=== PATIENT | male | born 1955 | race African-American/Black ===

== ENCOUNTER 2020-03-16 17:16 | Inpatient (IN) | payer OTHER ==
[~2020-03-16] VITALS: Ht 182.9 cm; Wt 111.3 kg
[~2020-03-16 17:16] MED LIST: ACTOS; ACTOS15 MG PO; ADVAIR HFA 1112 UNIT IH; ADVAIR IH; ALBUTEROL2.5 MG/0.1 IH; ASPIRIN325 PO; BENTYL 10 MG CA10 MG PO; CYMBALTA60 MG PO; DIOVAN 80 MG TA80 M1 PO; DIOVAN40 MG PO; EC-NAPROSYN500 MG PO; FLEET ENEMA118 ML RC; FOLIC ACID1 MG PO; LIPITOR80 MG PO; LOPRESSOR; LOPRESSOR100 MG PO; MEDROLDOSEPACK PO; METOPROLOL 100100 M1 PO; OMEPRAZOLE40 MG PO; PLAVIX 75 MG TA75 MG PO; PRILOSEC40 MG PO; PROAIR HFA8.5 GM IH; SENOKOT-S1 TA1 PO; SINGULAIR; SINGULAIR 10 MG10 M1 PO; TOPAMAX50 MG PO; TOPROL XL100 MG PO
[2020-03-16 17:17] VITALS: BP 140/71
[2020-03-16 17:44] LABS: ABSOLUTE NEUTROPHILS 3.1 thou/uL (1.4-8.2); BASOPHILS 0.7 % (0.0-2.0); EOSINOPHILS 6.5 % (0.0-3.0); HEMATOCRIT 40.8 % (42.0-52.0); HEMOGLOBIN 13.7 gm/dL (14.0-18.0); LYMPHOCYTES 30.2 % (24.0-44.0); MCHC 33.5 g/dL (28.0-37.0); MCV 92.3 fL (80.0-100.0); PLATELET COUNT 197 thou/uL (150-400); POLYS 52.6 % (36.0-66.0); RBC 4.42 mil/uL (4.50-6.00); RDW 14.6 % (10.5-14.5); WBC 5.9 thou/uL (4.0-11.0)
[2020-03-16 17:58] LABS: ANION GAP 6 mmol/L (7-16); BUN 13 mg/dL (7-18); CALCIUM 9.2 mg/dL (8.5-10.1); CHLORIDE 103 mmol/L (98-107); CO2 30 mmol/L (21-32); CREATININE 1.4 mg/dL (0.7-1.3); GLUCOSE 95 mg/dL (74-106); POTASSIUM 3.9 mmol/L (3.5-5.1); SODIUM 139 mmol/L (136-145)
[2020-03-16 18:00] LABS: APTT 27.2 Seconds (24.5-32.8); INR 1.1
[2020-03-16 18:03] LABS: ALBUMIN 3.9 g/dL (3.4-5.0); SGOT 33 U/L (15-37); SGPT 36 U/L (30-65); TOTAL BILIRUBIN 0.5 mg/dL (0.2-1.0); TOTAL PROTEIN 8.2 g/dL (6.4-8.2); TROPONIN-I <0.06 ng/mL (<0.06)
[2020-03-16] MEDS ORDERED: GLUMETZA500 M1 PO (18:43)
[2020-03-16] MEDS ORDERED: BUMEX2 MG PO (18:44)
[2020-03-16 18:51] LABS: URINE BILIRUBIN NEGATIVE (Negative); URINE BLOOD NEGATIVE (Negative); URINE CLARITY CLEAR; URINE COLOR YELLOW; URINE GLUCOSE-RANDOM* NEGATIVE (Negative); URINE KETONES NEGATIVE (Negative); URINE LEUKOCYTES-REFLEX NEGATIVE (Negative); URINE NITRITE-REFLEX NEGATIVE (Negative); URINE PROTEIN (DIPSTICK) NEGATIVE (Negative); URINE UROBILINOGEN 0.2 E.U./dl (0.2-1.0)
[2020-03-16 22:41] VITALS: BP 113/63
[2020-03-16 23:19] LABS: CHOLESTEROL 103 mg/dL (<200); HDL CHOLESTEROL 26 mg/dL (>40); LDL CHOLESTEROL 65 mg/dL (<100); TRIGLYCERIDE 62 mg/dL (<150); VLDL 12 mg/dL (<40)
[2020-03-16 23:38] LABS: SERUM ASSESSMENT Clear
[2020-03-17] VITALS (16 sets, daily range): BP systolic 104–148; BP diastolic 51–86
[2020-03-17] MEDS ORDERED: LOPRESSOR50 MG PO (00:06)
--- NOTE | 2020-03-17 05:58 | NUR ---
PT IS ADMITTING FROM ER FOR CHEST PAIN AND LEFT SIDED WEAKNESS, PT IS AWAKE, ALERT AND ORIENTEDX4, MAKES NEEDS KNOWN, ASSESSMENTS CHARTED, C/O CHEST PAIN OF A 6, NITRO GIVEN WITH PARTIAL RELIEF, EKG OBTAINED, SR, C/0 CHEST PAIN OF A 5/10, MORPHINE GIVEN WITH RELIEF, ADMISSION ASESSMENTS AND EDUCATION COMPLETED, PT REMAINED NPO, NO OTHER CONCERNS VOICED, WILL PASS ON REPORT
[2020-03-17] MEDS ORDERED: NEURONTIN300 MG PO (06:44)
[2020-03-17] MEDS ORDERED: TAMSULOSIN HCL0.4 MG PO (06:46)
[2020-03-17] MEDS ORDERED: VALACYCLOVIR500 MG PO (06:48)
[2020-03-17] MEDS ORDERED: DESYREL150 MG PO (06:49)
[2020-03-17] MEDS ORDERED: IPRAT-ALBUT 0.5-3 ML INH (06:53)
[2020-03-17] MEDS ORDERED: PROAIR HFA8.5 GM INH (06:54)
[2020-03-17] MEDS ORDERED: ASA81BEC PO (06:54)
--- NOTE | 2020-03-17 07:02 | EKG ---
[facility] [place] [address] ELECTROCARDIOGRAM REPORT Name: SONALI GARCIA Room #: 210-P ADM IN M.R.#: [id number] Admission: 03/16/20 Attend Phys: Kraig Campbell MD Discharge: Date of : 57 Report #: [id number] THIS REPORT FOR: cc: INDIGO CACERES MD, LINDSAY N MD Santiago, Patrick MD [facility] ~ THIS REPORT FOR: //name// [facility] ED Test Date: 2020-03-16 Test Time: 17:19:05 Pat Name: SONALI GARCIA Department: Room: 210 Gender: M Director Of Labor And Delivery: ER : 1955 Requested By: Antione Campoverde Order Number: [id number] MD: Moshe Thakkar Measurements Intervals [place] Rate: 71 P: 53 PA: 156 QRS: 43 QRSD: 94 T: 52 QT: 373 QTc: 406 Interpretive Statements Sinus rhythm Compared to ECG 05/10/2010 20:25:00 No significant changes Electronically Signed On 03-17-2020 7:02:23 SECURITY OPERATIONS ENGINEER by Moshe Thakkar [email or web address] <ELECTRONICALLY SIGNED> By: Moshe Thakkar MD, FACC 03/17/20 0702 1719 1719 Moshe Thakkar MD, FAC /EPI
--- NOTE | 2020-03-17 07:03 | EKG ---
[facility] [place] [address] ELECTROCARDIOGRAM REPORT Name: SONALI GARCIA Room #: 210-P ADM IN M.R.#: [id number] Admission: 03/16/20 Attend Phys: Kraig Campbell MD Discharge: Date of : 57 Report #: [id number] THIS REPORT FOR: cc: INDIGO CACERES MD, LINDSAY N MD Santiago, Patrick MD [facility] ~ THIS REPORT FOR: //name// [facility] Test Date: 2020-03-17 Test Time: 01:28:28 Pat Name: SONALI GARCIA Department: Room: 210 Gender: M Intelligence Engineer: [email or web address] : 1955 Requested By: Aicha Meade Order Number: [id number] MD: Moshe Thakkar Measurements Intervals [place] Rate: 81 P: 67 [place]: 149 QRS: 57 QRSD: 84 T: 55 QT: 387 QTc: 450 Interpretive Statements Sinus rhythm Compared to ECG 03/16/2020 17:19:05 No significant changes Electronically Signed On 03-17-2020 7:03:22 HUMAN RELATIONS PROFESSOR by Moshe Thakkar [email or web address] <ELECTRONICALLY SIGNED> By: Moshe Thakkar MD, FACC 03/17/20 0703 0128 0128 Moshe Thakkar MD, FAC /EPI
[2020-03-17 07:48] LABS: ANION GAP 14 mmol/L (7-16); BUN 17 mg/dL (7-18); CALCIUM 9.1 mg/dL (8.5-10.1); CHLORIDE 104 mmol/L (98-107); CO2 23 mmol/L (21-32); GLUCOSE 90 mg/dL (74-106); POTASSIUM 4.4 mmol/L (3.5-5.1); SODIUM 141 mmol/L (136-145)
[2020-03-17 07:57] LABS: TROPONIN-I <0.06 ng/mL (<0.06)
--- NOTE | 2020-03-17 10:46 | CATHLAB ---
[place] [address] INVASIVE PROCEDURE REPORT Name: SONALI GARCIA Room #: 210-P ADM IN M.R.#: [id number] Admission: 03/16/20 Attend Phys: Kraig Campbell MD Discharge: Date of : 57 Report #: [id number] THIS REPORT FOR: cc: INDIGO CACERES MD, LINDSAY N MD Lundgren, Craig H. MD [facility] ~ APPROVED REPORT Study performed: 03/17/2020 08:32:54 Patient Details Patient Status: In-Patient Room #: The patient is a 65 year-old male Event Personnel Milind Ferrer Principal Biostatistician, Pascual Su RTR Monitor, Jason Blanco RTR Scrub, Miguel Villarreal RN RN, Betty Mcnulty Mandrel Puller, Leticia Zabala RTR, MULTICULTURAL MANAGER Scrub Procedures Performed Art Access - R femoral artery* Left Heart Cath Coronaries, Bypass Grafts [id number] LHCCORCABG NEERAJ Place w/wo Plasty Single Left Main 085689 21711 Initial Mod Sed Same Phys/QHP Gr5y 864770 45888 Mod Sed Same Phys/QHP Ea 454950 Hemostasis w/ Mynx Indication Chest pain Procedure Narrative The patient was brought urgently to the Cardiac Catheterization Laboratory and was prepped and draped in a sterile manner. The Right Groin^ was infiltrated with 1% Lidocaine subcutaneous anesthesia. A PINNACLE 6FR Sheath #[id number] sheath was inserted into the RFA^. Coronary angiography was performed using coronary diagnostic catheters. The right coronary system was accessed and visualized with a RCB catheter. The left coronary system was accessed and visualized with a JL4 catheter. The left ventricle was accessed and visualized with a PIGTAIL catheter. Left ventriculogram was performed in 30 degree projection. Closure device was deployed with a 6 Fr MYNXGRIP 6/7F #[id number]. The patient tolerated the procedure well and there were no complications associated with the procedure. There was no hematoma. Intraoperative Conscious Sedation [address] [address] INVASIVE PROCEDURE REPORT Name: SONALI GARCIA Room #: 210-P [facility] IN M.R.#: [id number] Admission: 03/16/20 Attend Phys: Kraig Campbell MD Discharge: Date of : 57 Report #: [id number] Sedation start time: 852 Case end Time: 1001 Fentanyl 75 mcg Versed 2 mg Fluoro Time: 15.08 minutes Dose: DAP 41365.50 cGycm2 2329 mGy Contrast Type and Amount: Omnipaque 395 ml Coronary Angiography The patient's coronary anatomy is right dominant. Diagnostic Cath Left Main 50-60% distal left main stenosis LAD Proximal LAD occlusion. Widely patent left internal mammary to the LAD. Mild plaquing throughout the hamilton LAD. Mammary flow does not completely protected a high, large first diagonal branch Diagonal 1 Large first diagonal branch, angiographically normal Circumflex 90% ostial circumflex stenosis OM1 Large OM1 filled by vein graft to the OM. SVG is normal including proximal and distal anastomotic sites OM2 The SVG fills the entire circumflex marginal branch system including 3 marginal branches OM3 Distally arising, mild plaquing Right Coronary The right coronary is dominant. Long 60-70% distal right coronary stenosis. Mild plaquing within a mid right coronary stent Occluded vein graft to the right coronary R PDA Mild plaquing RPLV Small, mild plaquing Left Ventriculography The left ventricle is normal in size with normal contractility. The left ventricular ejection fraction is estimated to be 60-65%. Left ventricular wall motion abnormalities are not present. There is no mitral insufficiency. Hemodynamics The aortic pressure is 132/63 mmHg with a mean of 93 mmHg. The left ventricular pressure is 119/10 mmHg with a mean of mmHg. The left ventricular end diastolic pressure is 12 mmHg. PCI Technique Lesion Anticoagulation was achieved with Heparin, Integrilin. Patient was preloaded with Plavix. Percutaneous coronary intervention was [address] [place] [address] INVASIVE PROCEDURE REPORT Name: SONALI GARCIA Room #: 210-P [facility] IN M.R.#: [id number] Admission: 03/16/20 Attend Phys: Kraig Campbell MD Discharge: Date of : 57 Report #: [id number] performed on the Distal left main extending to large first diagonal branch. The lesion stenosis prior to intervention was 95% with ENRRIQUE 3 flow. A LAUNCHER 6FR EBU 3.5 #[id number] Guide Catheter was used to engage the ostium. A Luge Wire .014 x 182CM #[id number] Interventional Guidewire was used to cross the lesion. BALLOON DILATION A Balloon catheter Euphora RX 2.5 x 15 #[id number] was inserted and inflated up to 14atm for 35seconds. STENT DEPLOYMENT A drug-eluting stent RESOLUTE OSVALDO RX 3.0 X 18 #[id number] was inserted and inflated up to 14atm for 33seconds. POST STENT DEPLOYMENT BALLOON DILATION A Balloon catheter TREK NC RX 3.0 X 15 #[id number] was inserted and inflated up to 18atm for 32seconds. Additional Inflation: 22atm for 32seconds. Final angiography reveals 0 % stenosis with ENRRIQUE 3 flow. PCI Technique Lesion 2 Percutaneous Coronary Intervention was performed on the LM. Conclusion 1. Normal global and regional left ventricular systolic function. EF 65% 2. Left main distal 50-60% stenosis 3. Severe proximal LAD disease. Widely patent left internal mammary to the LAD 4. Severe proximal circumflex disease with entire circumflex and marginal branches filled by normal vein graft to OM1 5. Distal right coronary disease. Right coronary dominant. Failed vein graft to the right coronary. Consider distal right coronary intervention for refractory symptoms despite medical therapy. 6. Large first diagonal branch not protected by antegrade flow through the left main or retrograde HAMILTON flow. The stenting of distal left main extending into the diagonal branch with a 3.0 x 18 mm Resolute stent, Postdilated to 3.3 mm Recommendations Daily ASA with Plavix for at least one year [address] [place] [address] INVASIVE PROCEDURE REPORT Name: SONALI GARCIA Room #: 538-P ADM IN M.R.#: [id number] Admission: 03/16/20 Attend Phys: Kraig Campbell MD Discharge: Date of : 57 Report #: [id number] Cardiac Rehabilitation Referral Aggressive Medical Therapy <ELECTRONICALLY SIGNED> By: Milind Ferrer MD, FAC 03/17/20 1046 45 104 Milind Ferrer MD, FACC /INF
--- NOTE | 2020-03-17 12:28 | EKG ---
[facility] [place] [address] ELECTROCARDIOGRAM REPORT Name: SONALI GARCIA Room #: 210-P ADM IN M.R.#: [id number] Admission: 03/16/20 Attend Phys: Kraig Campbell MD Discharge: Date of : 57 Report #: [id number] THIS REPORT FOR: cc: INDIGO CACERES MD, LINDSAY N MD Santiago, Patrick MD [facility] ~ THIS REPORT FOR: //name// [facility] Test Date: 2020-03-17 Test Time: 10:31:52 Pat Name: SONALI GARCIA Department: Room: 210 P Gender: M Staff Psychologist: DIPTI : 1955 Requested By: Milind Ferrer Order Number: [id number] MD: Moshe Thakkar Measurements Intervals [place] Rate: 80 P: 72 CT: 155 QRS: 64 QRSD: 89 T: 39 QT: 391 QTc: 451 Interpretive Statements Sinus rhythm Compared to ECG 03/17/2020 01:28:28 No significant changes Electronically Signed On 03-17-2020 12:28:04 BATCH UNIT TREATER by Moshe Thakkar [email or web address] <ELECTRONICALLY SIGNED> By: Moshe Thakkar MD, FACC 03/17/20 1228 1031 1031 Moshe Thakkar MD, FAC /EPI
--- NOTE | 2020-03-17 12:32 | 2DMMODE ---
[facility] [place] [address] 2 D/M-MODE ECHOCARDIOGRAM Name: SONALI GARCIA Room #: 210-P ADM IN M.R.#: [id number] Admission: 03/16/20 Attend Phys: Kraig Campbell MD Discharge: Date of : 57 Report #: [id number] THIS REPORT FOR: cc: INDIGO CACERES MD, LINDSAY N MD Santiago, Patrick MD [facility] ~ APPROVED REPORT Study performed: 03/17/2020 10:45:43 EXAM: Comprehensive 2D, Doppler, and color-flow Echocardiogram Patient Location: Bedside Room #: 210 BSA: 2.33 HR: 73 bpm BP: 117/57 mmHg Rhythm: NSR Other Information Study Quality: Adequate Indications CP. Post PCI. Hx: OK, stents, CABG, HTN, DM, HLD, CVA. 2D Dimensions RVDd: 35.57 mm IVSd: 9.88 (7-11mm) LVOT Diam: 23.63 (18-24mm) LVDd: 38.02 mm PWd: 11.47 (7-11mm) Ascending Ao: 35.30 (22-36mm) LVDs: 28.59 (25-40mm) Aortic Root: 32.29 mm Volumes Left Atrial Volume (Systole) Single Plane 4CH: 35.52 mL Single Plane 2CH: 45.46 mL LA ESV Index: 18.00 mL/m2 Aortic Valve AoV Peak Ivan.: 1.12 m/s AO Peak Gr.: 4.98 mmHg LVOT Max P.30 mmHg LVOT Max V: 0.91 m/s BRANDO Vmax: 3.57 cm2 [facility] [address] [address] 2 D/M-MODE ECHOCARDIOGRAM Name: SONALI GARCIA Room #: 210-P [facility] IN [facility].#: [id number] Admission: 03/16/20 Attend Phys: Kraig Campbell MD Discharge: Date of : 57 Report #: [id number] Mitral Valve E/A Ratio: 0.7 MV Decel. Time: 283.78 ms MV E Max Iavn.: 0.76 m/s MV A Ivan.: 1.11 m/s MV PHT: 82.30 ms IVRT: 96.89 ms Pulmonary Vein P Vein S: 0.35 m/s P Vein A: 0.22 m/s P Vein D: 0.31 m/s P Vein A Dur.: 117.6 msec P Vein S/D Ratio: 1.13 Left Ventricle The left ventricle is normal size. There is normal LV segmental wall motion. Mild concentric left ventricular hypertrophy. The left ventricular systolic function is normal. LVEF is 55-60%. Mild diastolic dysfunction is present (impaired relaxation pattern). Right Ventricle The right ventricle is normal size. The right ventricular systolic function is normal. Atria The left atrium size is normal. The right atrium size is normal. Aortic Valve The aortic valve is normal in structure. No aortic regurgitation is present. There is no aortic valvular stenosis. Mitral Valve The mitral valve is normal in structure. Mitral valve leaflets are thickened. Mild mitral regurgitation. No evidence of mitral valve stenosis. Tricuspid Valve The tricuspid valve is normal in structure. There is no tricuspid valve regurgitation noted. Unable to assess PA pressure. Pulmonic Valve The pulmonary valve is normal in structure. There is no pulmonic valvular regurgitation. [facility] [place] [address] 2 D/M-MODE ECHOCARDIOGRAM Name: SONALI GARCIA Room #: 210-P ADM IN M.R.#: [id number] Admission: 03/16/20 Attend Phys: Kraig Campbell MD Discharge: Date of : 57 Report #: [id number] Great Vessels The aortic root is normal in size. The ascending aorta is normal in size. IVC is not well visualized. Pericardium There is no pericardial effusion. <Conclusion> Normal left ventricle size Mild concentric hypertrophy Normal ejection fraction of 60% Grade 1 diastolic dysfunction Normal right ventricular size and function Normal atrial size Normal aortic valve structure and function Mild mitral valve insufficiency No evidence of tricuspid valve insufficiency No pericardial effusion <ELECTRONICALLY SIGNED> By: Moshe Thakkar MD, [facility] 03/17/20 1232 1232 1232 Moshe Thakkar MD, FACC /INF
--- NOTE | 2020-03-17 16:02 | NUR ---
THIS NURSE RECEIVED REPORT FROM SEASONAL PACKAGE HANDLER BEFORE PT RETURNED TO ROOM, WITH NO MENTION OF ADMINISTERING PLAVIX. PT RETURNED TO ROOM AND THIS NURSE ADMINISTERED ALL MORNING MEDS INCLUDING 600MG PLAVIX DOSE. SEASONAL PACKAGE HANDLER NURSE CALLED [employer] 15-20 MINUTES LATER SAYING HE FORGOT TO TELL ME THAT HE GAVE THE PT THE PLAVIX DOSE IN THE SEASONAL PACKAGE HANDLER. SO PT RECIEVED DOUBLE DOSE OF PLAVIX. NOTIFIED THROUGH HIS NURSE PRACTITIONER. PHARMACY NOTIFIED. NURSE ASSEMBLER MOTOR VEHICLE NOTIFIED. HOUSE SUP NOTIFIED. INCIDENT REPORT WAS FILED.
--- NOTE | 2020-03-17 16:44 | NUR ---
I have reviewed the documentation by GAMALIEL LYNN from 03/17/20 to 03/17/20 and I concur with it. MARTIN VALLEJO, PT, DPT
--- NOTE | 2020-03-17 17:02 | NUR ---
ASSUMED CARE OF PT AT SHIFT CHANGE. ASSESSMENTS CHARTED. MEDS GIVEN PER JUN. PT A&OX4, C/O PAIN TREATED WITH PO MEDS WITH PARTIAL RELIEF. R GROIN SITE CDI WITH NO BRUISING OR HEMATOMA. NO SIGNS OF BLEEDING. PLAN FOR DISCHARGE FRIDAY IF STABLE THROUGH THE NIGHT. WILL CONTINUE TO MONITOR AND FOLLOW POC.
[2020-03-17 23:07] LABS: GLYCOHEMOGLOBIN (HGB A1C) 5.7 % (4.8-5.6)
[2020-03-18] VITALS: BP 121/50
[2020-03-18 03:54] LABS: HEMATOCRIT 36.7 % (42.0-52.0); HEMOGLOBIN 12.3 gm/dL (14.0-18.0); MCH 31.1 pg (26.0-34.0); MCHC 33.6 g/dL (28.0-37.0); MCV 92.5 fL (80.0-100.0); RBC 3.97 mil/uL (4.50-6.00); RDW 15.1 % (10.5-14.5)
[2020-03-18 04:27] LABS: ALBUMIN 3.2 g/dL (3.4-5.0); CALCIUM 8.9 mg/dL (8.5-10.1); CREATININE 1.2 mg/dL (0.7-1.3); POTASSIUM 3.6 mmol/L (3.5-5.1); TOTAL BILIRUBIN 0.4 mg/dL (0.2-1.0); TOTAL PROTEIN 7.1 g/dL (6.4-8.2); TROPONIN-I 0.11 ng/mL (<0.06)
[2020-03-18 04:38] VITALS: BP 117/44
--- NOTE | 2020-03-18 05:31 | NUR ---
ASUMMED PT CARE AT THE CHANGE OF SHIFT, PT IS AWAKE, ALERT AND ORIENTEDX4, ROksanaGROIN SITE CHECKED CDI, ASESSMENTS CHARTED, REMAINS ON RA, VITAL SIGNS STABLE, DENIES CHEST PAIN OR SOB, NO SIGNS OF BLEEDING NOTED, DENIES CONCERNS AT THIS TIME, WILL CONTINUE TO MONITOR, WILL PASS ON REPORT
[2020-03-18 08:15] VITALS: BP 135/77
--- NOTE | 2020-03-18 10:46 | EKG ---
[facility] [place] [address] ELECTROCARDIOGRAM REPORT Name: SONALI GARCIA Room #: 210-P ADM IN M.R.#: [id number] Admission: 03/16/20 Attend Phys: Kraig Campbell MD Discharge: Date of : 57 Report #: [id number] THIS REPORT FOR: cc: INDIGO CACERES MD, LINDSAY N MD Lundgren,Milind Khan MD [facility] THIS REPORT FOR: //name// [facility] Test Date: 2020-03-18 Test Time: 07:41:42 Pat Name: SONALI GARCIA Department: Room: 210 P Gender: M Paper Steamer: Janice BROOKE : 1955 Requested By: Milind Ferrer Order Number: [id number] MD: Milind Ferrer Measurements Intervals [place] Rate: 60 P: 69 [place]: 159 QRS: 58 QRSD: 96 T: 52 QT: 416 QTc: 416 Interpretive Statements Sinus rhythm Compared to ECG 03/17/2020 10:31:52 No significant changes Electronically Signed On 03-18-2020 10:46:03 DEWATERER OPERATOR by Milind Ferrer [email or web address] <ELECTRONICALLY SIGNED> By: Milind Ferrer MD, FACC 03/18/20 1046 0741 0741 Milind Ferrer MD, [facility] /EPI
[2020-03-18 10:52] VITALS: BP 135/77
--- NOTE | 2020-03-18 12:31 | NUR ---
ASSUMED CARE OF PT AT SHIFT CHANGE. ASSESSMENTS CHARTED. MEDS GIVEN PER JUN. PT A&OX4, NO C/O OR DISTRESS. DISCHARGE ORDERS AND INSTRUCTIONS COMPLETE. TELE AND IV DC'D. PT TAKEN TO ER ENTRANCE VIA WHEELCHAIR TO WAITING FAMILY CAR.
== END 2020-03-18 11:35 | disposition home or self-care (01) | DRG 246 ==
LOC: ER 17:16 → 2N 22:13 → EROBS 22:13 → 2N 03-17 00:33
PROVIDERS: Emergency Medicine; Internal Medicine; Nurse Practitioner Family; ADMIT Internal Medicine; ATTEND Internal Medicine
PROC: 4A023N7 Measurement of Cardiac Sampling and Pressure, Left Heart, Percutaneous Approach (ICD-10-PCS; principal; 2020-03-17)
PROC: B2111ZZ Fluoroscopy of Multiple Coronary Arteries using Low Osmolar Contrast (ICD-10-PCS; principal; 2020-03-17)
PROC: B2151ZZ Fluoroscopy of Left Heart using Low Osmolar Contrast (ICD-10-PCS; principal; 2020-03-17)
PROC: 027034Z Dilation of Coronary Artery, One Artery with Drug-eluting Intraluminal Device, Percutaneous Approach (ICD-10-PCS; principal; 2020-03-17)
PROC: B2131ZZ Fluoroscopy of Multiple Coronary Artery Bypass Grafts using Low Osmolar Contrast (ICD-10-PCS; principal; 2020-03-17)
DX: I25.110 Atherosclerotic heart disease of native coronary artery with unstable angina pectoris (principal); N17.0 Acute kidney failure with tubular necrosis; I69.354 Hemiplegia and hemiparesis following cerebral infarction affecting left non-dominant side; I10 Essential (primary) hypertension; E11.9 Type 2 diabetes mellitus without complications; J45.909 Unspecified asthma, uncomplicated; E78.00 Pure hypercholesterolemia, unspecified; K21.9 Gastro-esophageal reflux disease without esophagitis; F32.9 Major depressive disorder, single episode, unspecified; Z95.1 Presence of aortocoronary bypass graft; Z79.4 Long term (current) use of insulin; I25.2 Old myocardial infarction; Z95.5 Presence of coronary angioplasty implant and graft; Z88.6 Allergy status to analgesic agent; Z88.0 Allergy status to penicillin; Z88.8 Allergy status to other drugs, medicaments and biological substances; Z71.6 Tobacco abuse counseling; Z79.82 Long term (current) use of aspirin; Z79.899 Other long term (current) drug therapy
CPT/HCPCS: 10081